=== PATIENT | male | born 1995 | race Asian ===

== ENCOUNTER 2016-08-05 19:53 | Emergency (ER) | payer OTHER ==
--- NOTE | 2016-08-05 21:33 | ED ---
Jay Matta Benjamin, scribed for Abhi To MD on 08/05/16 at 2006 . Psychiatric Complaint - HPI Summary HPI Summary: 20yo male BIB EMS after police was called. pt was reported to be lying on the street hallucinating. Per police, pt was smelling like marijuana, and per friend , pt had taken 2 tabs of LSD around 2-3pm. Pt was combative and uncooperative at scene. Per EMS, pt was tachycardic, and had dilated pupils. LEVEL 5 CAVEAT. - History Of Current Complaint Chief Complaint: EDSubstanceAbuse Hx Obtained From: EMS Hx From Patient Unobtainable Due To: Other - uncooperative and hallucinating Onset/Duration: Lasting Hours, Still Present Timing: Constant Severity Initially: Moderate Severity Currently: Moderate Aggravating Factor(s): Drug Use Alleviating Factor(s): Nothing Associated Signs And Symptoms: Positive: Hallucinating - Allergies/Home Medications Allergies/Adverse Reactions: Allergies Allergy/AdvReac Type Severity Reaction Status Date / Time No Known Allergies Allergy Verified 07/01/13 13:07 PMH/Surg Hx/FS Hx/Imm Hx Previously Healthy: No - UNABLE TO OBTAIN; LEVEL 5 CAVEAT - Family History Known Family History: Positive: Unknown - LEVEL 5 CAVEAT - Social History Occupation: Student Lives: Alone Alcohol Use: Occasionally Substance Use Type: Reports: None Have You Smoked in the Last Year: No Review of Systems - ROS Summary Review of Systems Summary: LEVEL 5 CAVEAT. All Other Systems Reviewed And Are Negative: No Physical Exam Triage Information Reviewed: Yes Vital Signs On Initial Exam: Initial Vitals Temp Pulse Resp BP Pulse Ox 100.2 F 115 18 154/67 94 08/05/16 20:00 08/05/16 20:00 08/05/16 20:00 08/05/16 20:00 08/05/16 20:00 Vital Signs Reviewed: Yes Appearance: Positive: Well-Appearing, No Pain Distress, Well-Nourished Skin: Positive: Warm, Skin Color Reflects Adequate Perfusion, Dry Head/Face: Positive: Normal Head/Face Inspection Eyes: Positive: EOMI, Other: - dialated pupils ENT: Positive: Normal ENT inspection Neck: Positive: Supple, Nontender Respiratory/Lung Sounds: Positive: Clear to Auscultation, Breath Sounds Present Cardiovascular: Positive: Tachycardia Abdomen Description: Positive: Nontender, No Organomegaly, Soft Bowel Sounds: Positive: Present Musculoskeletal: Positive: Normal, Strength/ROM Intact Neurological: Positive: Normal, Sensory/Motor Intact Psychiatric: Positive: Patient Uncooperative for Exam Diagnostics - Vital Signs Vital Signs Temp Pulse Resp BP Pulse Ox 08/05/16 20:00 100.2 F 115 18 154/67 94 - Laboratory Lab Statement: Any lab studies that have been ordered have been reviewed, and results considered in the medical decision making process. Course/Dx - Course Assessment/Plan: INITIALLY, PATIENT WAS HALLUCINATION AND NOT COOPERATIVE. PLACED IN RESTRAINTS. PATIENT BECAME LUCID THE RESTRAINTS WERE REMOVED. HE WAS THEN COOPERATIVE AND A & O X 3. DISCHARGE HOME STABLE. - Differential Dx/Clinical Impression Provider Diagnosis: Hallucinations - Critical Care Time Critical Care Time: 30-74 min Discharge - Discharge Plan Condition: Stable Disposition: HOME Patient Education Materials: Nonpsychiatric Hallucinations (ED) Referrals: No Primary Care Phys,NOPCP [Primary Care Provider] - [facility] [Outside] Additional Instructions: FOLLOW UP WITH YOUR DOCTOR. RETURN TO THE EMERGENCY DEPARTMENT FOR ANY WORSENING OF YOUR CONDITION OR QUESTIONS OR CONCERNS. The documentation as recorded by the Jay medeiros Benjamin accurately reflects the service I personally performed and the decisions made by me, Abhi To MD.
[2016-08-05 22:14] VITALS: BP 118/63
== END 2016-08-05 22:13 | disposition home or self-care (01) ==
LOC: ED 19:53
DX: R44.3 Hallucinations, unspecified (principal)
CPT/HCPCS: 99283